=== PATIENT | female | born 2000 | race Caucasian/White ===

== ENCOUNTER 2023-03-22 06:00 | Inpatient (IN) | payer BC ==
[2023-03-22] MEDS: LACTATED RINGERS 1,000 ML IV SCH ×4 (06:20→19:00)
[2023-03-22] MEDS ORDERED: OXYTOCIN 10 UNIT/ML 1 ML VIAL IM PRN (06:27)
[2023-03-22] MEDS ORDERED: AMPICILLIN 2,000 MG in SODIUM CHLORIDE 0.9% 100 ML IVPB STA (06:27)
[2023-03-22] MEDS ORDERED: CARBOPROST TROMETHAMINE 250 MCG/ML 1 ML AMP IM PRN (06:27)
[2023-03-22] MEDS ORDERED: LIDOCAINE 0.5% (PF) 5 MG/ML (50 ML SDV) SQ PRN (06:27)
[2023-03-22] MEDS ORDERED: miSOPROStoL 200 MCG TAB PO PRN (06:27)
[2023-03-22] MEDS ORDERED: TRANEXAMIC 1,000 MG/100ML-NACL 1,000 MG in EMPTY BAG 1 BAG IV PRN (06:27)
[2023-03-22] MEDS ORDERED: TERBUTALINE 1 MG/ML VIAL SQ PRN (06:27)
[2023-03-22] MEDS ORDERED: METHYLERGONOVINE 0.2 MG/ML 1 ML AMP IM PRN (06:27)
[2023-03-22] MEDS ORDERED: OXYTOCIN 30 UNITS/500 ML NS 30 UNIT in SALINE 1 500ML.BAG IV SCH ×2 (06:30→19:00)
[2023-03-22 06:54] LABS: Basophils % (A) 0 %; Eosinophils # (A) 0.3 k/uL (0-0.7); Eosinophils % (A) 3 %; HCT 32.6 % (34.0-46.0); HGB 11.1 gm/dL (11.4-16.0); Lymphocytes # (A) 2.3 k/uL (1.0-4.8); Lymphocytes % (A) 24 %; MCH 29.1 pg (25.0-35.0); MCV 85.4 fL (80.0-100.0); Mean Platelet Volume 7.3; Monocytes # (A) 0.7 k/uL (0-1.0); Monocytes % (A) 8 %; Neutrophils # (A) 5.9 k/uL (1.3-7.7); Neutrophils % (A) 64 %; Platelet Count 384 k/uL (150-450); RBC 3.82 m/uL (3.80-5.40); RDW 12.6 % (11.5-15.5); WBC 9.3 k/uL (3.8-10.6)
[2023-03-22] MEDS ORDERED: SODIUM CHLORIDE 0.9% 250 ML BAG ONE (08:25)
[2023-03-22] MEDS ORDERED: fentaNYL (PF) 50 MCG/ML 5 ML AMP ONE (08:25)
[2023-03-22] MEDS ORDERED: ROPIVACAINE 5 MG/ML 30 ML VIAL ONE (08:25)
[2023-03-22] MEDS ORDERED: ROPIVACAINE 225 MG, fentaNYL (PF). 450 MCG in SODIUM CHLORIDE 0.9% 171 ML EPIDURAL ONE (09:53)
[2023-03-22] MEDS: AMPICILLIN 1,000 MG in SODIUM CHLORIDE 0.9% 50 ML IVPB SCH ×3 (10:09→22:21)
[2023-03-22] MEDS ORDERED: CITRIC ACID-SODIUM CITRATE 15 ML CUP PO ONE (17:57)
[2023-03-22] MEDS ORDERED: DEXAMETHASONE SOD PHOSPHATE 4 MG/ML 1 ML VIAL ONE (18:05)
[2023-03-22] MEDS ORDERED: ONDANSETRON 4 MG/2 ML VIAL ONE (18:05)
[2023-03-22] MEDS ORDERED: OXYTOCIN 30 UNITS/500 ML NS BAG IV ONE (18:05)
[2023-03-22] MEDS ORDERED: MORPHINE SULFATE (PF) 0.3 MG/0.3 ML SYR ONE (18:05)
[2023-03-22] MEDS ORDERED: NALOXONE 0.4 MG/ML 1 ML VIAL IV PRN (18:59)
[2023-03-22] MEDS ORDERED: ZOLPIDEM 5 MG TAB PO PRN (18:59)
[2023-03-22] MEDS ORDERED: diphenhydrAMINE 25 MG CAP PO PRN (18:59)
[2023-03-22] MEDS ORDERED: diphenhydrAMINE 50 MG/ML 1 ML VIAL IVP PRN ×2 (18:59)
[2023-03-22] MEDS ORDERED: ONDANSETRON 4 MG/2 ML VIAL IVP PRN (18:59)
[2023-03-22] MEDS ORDERED: METOCLOPRAMIDE 5 MG/ML 2 ML VIAL IVP PRN (18:59)
[2023-03-22] MEDS ORDERED: SIMETHICONE 80 MG CHEWABLE PO PRN (18:59)
[2023-03-22] MEDS ORDERED: diphenhydrAMINE 50 MG CAP PO PRN (18:59)
--- NOTE | 2023-03-22 19:14 | P.OP ---
Date of Procedure: 03/22/23 Preoperative Diagnosis: IUP @ 39 0/7 Arrest of descent OP presentation Postoperative Diagnosis: same Procedure(s) Performed: primary low transverse section Anesthesia: spinal Surgeon: Betsy Singh Labor Relations Supervisor #1: Amna Miranda Estimated Blood Loss (ml): 436 IV fluids (ml): 1,100 Urine output (ml): 200 Pathology: other (placenta) Condition: stable Disposition: observation Indications for Procedure: 22 yo at 39 weeks that presented for induction/augmentation of labor. she was noted to be 3-4/90 on admission and amniotomy was preformed and meconium stained fluid was noted. she progressed to anterior lip and multiple hours. she eventually was noted to be complete and began pushing, she had no descent of the head with increasing caput, OP presentation is noted. These findings are discussed with patient and c sectin is discussed with pt pts mom and significant other. she agrees and wishes to proceed with section. risks are reviewed and questions answered. Operative Findings: viable female delivered at 1828, weight 8-3 apgars of 8-9 at 1 and 5 minutes respectively. normal uterus tubes and ovaries are noted on exam. Description of Procedure: The patient was prepped and draped in the usual fashion after spinal anesthesia was administered by Dr. Nunez. A Pfannenstiel incision was made and extended of the abdominal cavity without difficulty. The bladder peritoneum was elevated and incised and reflected distally. A 2 cm incision was made in the transverse plane of the lower uterine segment to enter the uterus at which time clear fluid was noted. The incision was extended in both directions bluntly. The head was encountered within the field and delivered up and through the incision where the nose and mouth were thoroughly suctioned. Remainder of the infant was delivered onto the surgical field where the cord was doubly clamped, cut, and the was passed for resuscitative measures with weight and Apgars as noted above. A segment of cord was then doubly clamped, cut, and set aside should cord gases become necessary. The placenta was delivered manually, intact, and was grossly normal with a grossly normal three-vessel cord. The uterus was exteriorized and the interior cavity of the uterus swept of any remaining placental and membranous fragments with a laparotomy sponge. The margins of the incision were grasped with Allis clamps and the incision closed in 2 layers. First layer was a running locking layer of 0 Vicryl from margin to margin follo wed by a second layer of imbricating 0 Vicryl from margin to margin. Any small points of bleeding were then made hemostatic with the Bovie. Once hemostasis was achieved, the posterior cul-de-sac was suctioned with a guard and the uterine and ovarian findings are as noted above. The uterus was replaced within the abdominal cavity and the gutters swept of any remaining blood fluid or clot. The incision was again reexamined and hemostasis was noted to be excellent. Any small point of bleeding were made hemostatic with the Bovie. Once hemostasis was achieved the parietal peritoneum was loosely reapproximated. The layer of muscles were examined and made hemostatic with the Bovie. Attention was then turned to the fascia which was closed with 2 running stitches of 0 Vicryl proceeding from the lateral margins to the midpoint. The subcutaneous tissues were irrigated, made hemostatic with the Bovie, and reapproximated with a running stitch of 30 Vicryl. The skin was reapproximated with 4-0 Vicryl. Estimated blood loss for the case was approximately 436 mL. All sponge instrument and needle counts are correct. There were no complications. The patient tolerated the procedure well and proceeded to the recovery room in stable condition. Both mother and are resting comfortably in recovery.
--- NOTE | 2023-03-22 19:17 | P.HPOB ---
History of Present Illness H&P Date: 03/22/23 Chief Complaint: IUP at 39-0/7 weeks This is a 22-year-old 1 para 0 at 39 weeks of that presents for induction of labor. Patient has been noting irregular contractions throughout the week and requests induction of labor. Patient was seen in the office yesterday noted to be 3/70% effaced. Patient has been receiving routine care which has been essentially uncomplicated. She notes good movement denies loss of fluid or vaginal bleeding. Patient was seen in triage over the weekend for contractions she states they continued after discharge. On bloodwork A+, rubella status immune, hepatitis B surface engine negative, HIV negative, RPR is nonreactive, group beta strep cultures positive [employer] history #1 current Past Medical History Past Medical History: No Reported History History of Any Multi-Drug Resistant Organisms: None Reported Past Surgical History: No Surgical Hx Reported Past Anesthesia/Blood Transfusion Reactions: No Reported Reaction Past Psychological History: Anxiety Smoking Status: Former smoker Additional Past Alcohol Use History / Comment(s): Patient stopped vaping when she found out she was . Medications and Allergies Home Medications Medication Instructions Recorded Confirmed Type Vit No.179/Iron/Folic 1 tab PO DAILY 03/19/23 03/19/23 History [ Tablet] Allergies Allergy/AdvReac Type Severity Reaction Status Date / Time No Known Allergies Allergy Verified 03/19/23 00:18 Exam Osteopathic Statement: *. No significant issues noted on an osteopathic structural exam other than those noted in the History and Physical/Consult. Vital Signs Temp Pulse Resp BP Pulse Ox 03/22/23 06:26 97.5 F L 89 16 126/73 98 Intake and Output 03/21/23 03/22/23 03/22/23 22:59 06:59 14:59 Other: Weight 74.389 kg Results Result Diagrams: 03/22/23 06:18 Abnormal Lab Results - Last 24 Hours (Table) 03/22/23 Range/Units 06:18 Hgb 11.1 L (11.4-16.0) gm/dL Hct 32.6 L (34.0-46.0) %
[2023-03-22] MEDS: ACETAMINOPHEN IV (For NPO) 1,000 MG in EMPTY BAG 1 BAG IVPB SCH (20:57)
[2023-03-22] MEDS: SENNOSIDES-DOCUSATE SODIUM 1 EACH TAB PO SCH (23:52)
[2023-03-23] MEDS: IBUPROFEN IV 800 MG in SODIUM CHLORIDE 0.9% 250 ML IV SCH ×4 (00:33→22:30)
[2023-03-23] MEDS: LACTATED RINGERS 1,000 ML IV SCH ×4 (01:32→22:31)
[2023-03-23] MEDS: IBUPROFEN 600 MG TAB PO SCH ×4 (01:32→22:13)
[2023-03-23] MEDS: AMPICILLIN 1,000 MG in SODIUM CHLORIDE 0.9% 50 ML IVPB SCH (01:34)
[2023-03-23] MEDS: ACETAMINOPHEN IV (For NPO) 1,000 MG in EMPTY BAG 1 BAG IVPB SCH (03:47)
[2023-03-23 06:09] LABS: Basophils % (A) 0 %; Eosinophils # (A) 0.1 k/uL (0-0.7); Eosinophils % (A) 1 %; HCT 25.9 % (34.0-46.0); Lymphocytes # (A) 1.2 k/uL (1.0-4.8); Lymphocytes % (A) 8 %; MCH 29.1 pg (25.0-35.0); MCV 85.4 fL (80.0-100.0); Mean Platelet Volume 7.8; Monocytes % (A) 7 %; Neutrophils # (A) 12.1 k/uL (1.3-7.7); Neutrophils % (A) 83 %; Platelet Count 310 k/uL (150-450); RBC 3.04 m/uL (3.80-5.40); RDW 12.6 % (11.5-15.5); WBC 14.5 k/uL (3.8-10.6)
[2023-03-23 06:15] LABS: HGB 8.8 gm/dL (11.4-16.0)
--- NOTE | 2023-03-23 07:39 | P.PN ---
Progress Note - Text 03/23/23 649am 32-year-old female status post with spinal Duramorph. Patient seen and evaluated for postop pain control, patient has a VAS of 2 with no complains of nausea vomiting or pruritus.
[2023-03-23] MEDS: SENNOSIDES-DOCUSATE SODIUM 1 EACH TAB PO SCH ×2 (08:38→21:12)
[2023-03-23] MEDS ORDERED: PRENATAL VIT-IRON-FOLIC ACID 1 EACH TABLET PO SCH (09:00)
--- NOTE | 2023-03-23 10:18 | P.PNOBGPC ---
Subjective - Subjective Principal diagnosis: POD 1 LTCS arrest of descent Interval history: Patient is doing well. paini is controlled, lochia is minimal BF is going well gtz was removed, awaiting spontaneous void. tolerating a regular diet without nausea or vomitting. Patient reports: Reports appetite normal, Reports pain well controlled, Reports ambulating normally [place]: doing well, nursing well Objective - Vital Signs Latest vital signs: Vital Signs Temp Pulse Resp BP Pulse Ox 03/23/23 08:00 98.4 F 89 20 94/63 03/23/23 03:54 98.1 F 73 16 99/63 98 03/23/23 00:00 98.9 F 72 16 107/72 97 03/22/23 21:34 75 16 117/66 03/22/23 20:32 97.3 F L 82 18 125/70 03/22/23 20:02 69 18 124/71 98 03/22/23 19:47 98.7 F 71 16 116/70 98 03/22/23 19:34 94 16 135/65 96 03/22/23 19:32 98.8 F 83 16 120/59 97 03/22/23 19:17 100 F H 86 16 127/58 Intake and Output 03/22/23 03/23/23 03/23/23 22:59 06:59 14:59 Intake Total 167 Output Total 1270 800 400 Balance -1103 -800 -400 Intake: Intake, IV Titration 167 Amount Oxytocin 30 Units/500 ml 167 Ns 30 unit In Saline 1 500ml.bag @ Per Protocol IV .Q0M [facility] Rx#:[id number] Output: Urine 1100 800 400 Uretheral (Gtz) 300 Output, Quantitative 170 Blood Loss Other: Voiding Method Indwelling Catheter # Voids 1 - Exam Extremities: Present: normal, edema Abdomen: Present: normal appearance, soft Incision: Present: normal, dry, intact Uterus: Present: normal, firm - Labs Labs: Abnormal Lab Results - Last 24 Hours (Table) 03/23/23 Range/Units 05:48 WBC 14.5 H (3.8-10.6) k/uL RBC 3.04 L (3.80-5.40) m/uL Hgb 8.8 L D (11.4-16.0) gm/dL Hct 25.9 L (34.0-46.0) % Neutrophils # 12.1 H (1.3-7.7) k/uL Assessment and Plan (1) Term Current Visit: Yes Status: Acute Code(s): Z34.90 - ENCNTR FOR SUPRVSN OF NORMAL , UNSP, UNSP TRIMESTER SNOMED Code(s): 12784764 (2) Positive GBS test Current Visit: Yes Status: Acute Code(s): B95.1 - STREPTOCOCCUS, GROUP B, CAUSING DISEASES CLASSD ELSR SNOMED Code(s): 222842869 (3) S/P section Current Visit: Yes Status: Acute Code(s): Z98.891 - HISTORY OF UTERINE SCAR FROM PREVIOUS SURGERY SNOMED Code(s): 857599969 (4) Arrest of descent, delivered, current hospitalization Current Visit: Yes Status: Acute Code(s): O62.1 - SECONDARY UTERINE INERTIA SNOMED Code(s): 03030258 (5) Occiput posterior presentation of fetus Current Visit: Yes Status: Acute Code(s): O64.0XX0 - OBSTRUCTED LABOR DUE TO INCMPL ROTATION OF HEAD, UNSP SNOMED Code(s): 86957841 Plan: 22yo G1 now P1 s/p LTCS. she is doing well post operatively awaiting a spontaneous void s/p gtz removal increase ambulation, continue routine post operative care.
[2023-03-23] MEDS: ACETAMINOPHEN TAB 500 MG TAB PO SCH ×3 (10:36→21:12)
[2023-03-24] MEDS: IBUPROFEN 600 MG TAB PO SCH ×2 (01:00→07:39)
[2023-03-24] MEDS: ACETAMINOPHEN TAB 500 MG TAB PO SCH ×2 (03:48→13:11)
[2023-03-24 08:05] VITALS: BP 97/58; PULSE 75; RESP 15; TEMP 97.7
[2023-03-24] MEDS: SENNOSIDES-DOCUSATE SODIUM 1 EACH TAB PO SCH (08:05)
--- NOTE | 2023-03-24 10:45 | P.DS ---
Providers Date of admission: 03/22/23 06:00 Expected date of discharge: 03/24/23 Attending physician: Betsy Singh Primary care physician: Stated None - Discharge Diagnosis(es) (1) Term Current Visit: Yes Status: Acute (2) Positive GBS test Current Visit: Yes Status: Acute (3) S/P section Current Visit: Yes Status: Acute (4) Arrest of descent, delivered, current hospitalization Current Visit: Yes Status: Acute (5) Occiput posterior presentation of fetus Current Visit: Yes Status: Acute Hospital Course: This is a 22-year-old 1 now para 1 that presented to labor and delivery at 39 weeks for induction of labor. Patient had been gustavo through the weekend and early week and wished induction of labor. Patient was noted to be 3-4 cm and 90% effaced on admission amniotomy is performed and meconium-stained fluid was appreciated. Patient made good progress toward anterior lip. Patient remained anterior lip for multiple hours. Patient did eventually progressed to complete and began pushing. No descent of the head was appreciated after approximately 2 hours. At this time discussion with patient regarding station and lack of progress was had with patient's mom, significant other and her self. Patient stated understanding and wished to proceed with primary C- section was performed without difficulty. Patient delivered a viable female infant at 1828, weight of 8 lbs. 3 oz. For full details on the please see the dictated operative report. Patient is doing well postoperatively. On this postoperative day #2 she is feeling well. She is ambulating and voiding without difficulty. She is tolerating a regular diet without nausea or vomiting. States her pain is well- controlled. Her lochia is minimal. She is breast-feeding. She would like discharge home. Patient Condition at Discharge: Good Plan - Discharge Summary New Discharge Prescriptions: No Action Vit No.179/Iron/Folic [ Tablet] 1 tab PO DAILY Discharge Medication List Vit No.179/Iron/Folic [ Tablet] 1 tab PO DAILY 03/19/23 [History] Follow up Appointment(s)/Referral(s): Betsy Singh DO [Doctor of Osteopathic Medicine] - 2 Weeks Patient Instructions/Handouts: (DC), (GEN) Activity/Diet/Wound Care/Special Instructions: No tub baths or intercourse until 6 weeks postoperatively. [id number] ibuprofen 600 mg every 6 hours as needed for pain. bleeding can be like a moderate to heavy period. Passage of clots Being noted , typically she will passed a clot and then the bleeding will decrease. Patient is to call the office for routine post operative check at 2 weeks. Should she have any concerns prior to this visit she is asked to call the office and be seen sooner. Discharge Disposition: HOME SELF-CARE
== END 2023-03-24 14:30 | disposition home or self-care (01) | DRG 788 ==
LOC: 4FBP 06:00
PROVIDERS: ADMIT Obstetrics & Gynecology Obstetrics; ATTEND Obstetrics & Gynecology Obstetrics
PROC: 3E033VJ Introduction of Other Hormone into Peripheral Vein, Percutaneous Approach (ICD-10-PCS; 2023-03-22)
PROC: 10907ZC Drainage of Amniotic Fluid, Therapeutic from Products of Conception, Via Natural or Artificial Opening (ICD-10-PCS; 2023-03-22)
PROC: 10D00Z1 Extraction of Products of Conception, Low, Open Approach (ICD-10-PCS; principal; 2023-03-23)
DX: O62.1 Secondary uterine inertia (principal); O66.9 Obstructed labor, unspecified; O77.0 Labor and delivery complicated by meconium in amniotic fluid; O99.824 Streptococcus B carrier state complicating childbirth; Z37.0 Single live birth; Z3A.39 39 weeks gestation of pregnancy; Z87.891 Personal history of nicotine dependence
CPT/HCPCS: 85025; 86850; 86900; 86901; 88307